=== PATIENT | male | born 1945 | race Caucasian/White ===

== ENCOUNTER 2019-03-17 16:14 | Outpatient (CLI) | payer MEDICARE, SELFPAY ==
[2019-03-17 16:46] LABS: Alanine Aminotransferase 21 U/L (4-50); Albumin Level 4.5 g/dL (3.5-5.1); Alkaline Phosphatase 116 U/L (38-126); Aspartate Amino Transferase 22 U/L (17-59); Bilirubin,Total 0.4 mg/dL (0.2-1.3); Blood Urea Nitrogen 36 mg/dL (9-20); Calcium 9.8 mg/dL (8.4-10.2); Carbon Dioxide 23 mmol/L (22-30); Chloride 98 mmol/L (98-107); Estimated Glomerular Filt Rate 50; Glucose 291 mg/dL (75-110); Potassium 5.3 mmol/L (3.4-5.0); Sodium 135 mmol/L (137-145)
[2019-03-17 16:49] LABS: Hemoglobin A1C 8.8 % (<5.7)
== END 2019-03-17 16:15 | disposition home or self-care (01) ==
PROVIDERS: PCP Internal Medicine
DX: E11.8 Type 2 diabetes mellitus with unspecified complications (principal)
CPT/HCPCS: 36415; 80053; 83036

== ENCOUNTER 2019-07-14 17:39 | Outpatient (CLI) | payer MEDICARE, SELFPAY ==
[2019-07-14 18:14] LABS: Basophils Absolute Auto 0.1 K/mm3 (0.0-0.1); Basophils Percent Auto 0.6 % (0.2-1.2); Eosinophils Absolute Auto 0.2 K/mm3 (0-0.3); Hematocrit 42.3 % (42.0-52.0); Hemoglobin 13.7 g/dL (14.0-18.0); Immature Granulocyte Absolute 0.06 K/mm3 (0.00-0.031); Immature Granulocyte Percent A 0.5 % (0-0.5); Lymphocytes Absolute Auto 1.87 K/mm3 (0.9-3.2); Lymphocytes Percent Auto 16.7 % (18.3-44.2); Mean Corpuscular HGB Conc 32.4 g/dl (32-36); Mean Corpuscular Hemoglobin 31.4 pg (26-34); Mean Corpuscular Volume 96.8 fl (80-100); Mean Platelet Volume 11.2 fl (7.4-10.4); Monocytes Absolute Auto 0.9 K/mm3 (0.1-0.6); Monocytes Percent Auto 8.2 % (2.6-8.5); Neutrophils Absolute Auto 8.1 K/mm3 (1.3-6.7); Platelet Count Result 140 k/mm3 (150-375); Red Blood Count 4.37 M/mm3 (4.6-6.20); Red Cell Distribution Width 13.6 % (11.5-14.5); White Blood Count 11.2 K/mm3 (4.5-10.0)
[2019-07-14 18:27] LABS: Alanine Aminotransferase 24 U/L (4-50); Albumin Level 4.2 g/dL (3.5-5.1); Alkaline Phosphatase 118 U/L (38-126); Aspartate Amino Transferase 28 U/L (17-59); Bilirubin,Total 0.3 mg/dL (0.2-1.3); Blood Urea Nitrogen 31 mg/dL (9-20); Calcium 9.5 mg/dL (8.4-10.2); Carbon Dioxide 25 mmol/L (22-30); Chloride 106 mmol/L (98-107); Cholesterol 110 mg/dL (0-200); Estimated Glomerular Filt Rate 37; Glucose 134 mg/dL (75-110); HDL Direct 28 mg/dL; Sodium 139 mmol/L (137-145); Triglycerides 213 mg/dL (<150)
[2019-07-14 18:32] LABS: Hemoglobin A1C 7.8 % (<5.7)
[2019-07-14 18:39] LABS: LDL Cholesterol Direct 59 mg/dL
[2019-07-14 20:26] LABS: Free T4 Free Thyroxine 0.98 ng/mL (0.78-2.19)
== END 2019-07-14 17:40 | disposition home or self-care (01) ==
DX: E11.8 Type 2 diabetes mellitus with unspecified complications (principal); E78.5 Hyperlipidemia, unspecified; R53.83 Other fatigue; R60.0 Localized edema
CPT/HCPCS: 36415; 80053; 80061; 83036; 84439; 84443; 85025

== ENCOUNTER 2019-07-19 17:33 | Outpatient (CLI) | payer MEDICARE, SELFPAY ==
--- NOTE | ~2019-07-19 | XR_ITS ---
EXAMINATION: XR chest 2V EXAM DATE: 07/19/2019 17:52 INDICATION: Edema of the lower extremities. TECHNIQUE: Frontal and lateral projections of the chest obtained and reviewed. Comparison is made to prior examination from 06/18/2017. FINDINGS: Moderate thoracolumbar scoliosis. The lungs are clear. There are no pleural effusions. T he cardiomediastinal silhouette is within normal limits. There is no pneumothorax suspected. Modera te thoracolumbar disc disease. IMPRESSION: No acute cardiopulmonary findings. Scoliosis. Reviewed, dictated and finalized at location G.
== END 2019-07-19 17:34 | disposition home or self-care (01) ==
DX: R60.0 Localized edema (principal); M41.9 Scoliosis, unspecified
CPT/HCPCS: 71046

== ENCOUNTER 2019-10-14 14:30 | Outpatient (CLI) | payer MEDICARE, SELFPAY ==
--- NOTE | ~2019-10-14 | US_ITS ---
US arterial ankle brachial ind INDICATION: Intermittent claudication TECHNIQUE: Segmental pressures and plethysmographic and Doppler waveforms of the brachial and lower e xtremity arteries were obtained. COMPARISON: None. FINDINGS: Right and left brachial artery pressures of 114 mm Hg and 116 mm Hg, respectively, are concordant (no rmal difference <= 30 mmHg). The right ankle-brachial index (CHARMAINE) is 0.82 (normal >= 0.9-1.0). The right great toe-brachial index (TBI) is 0.59 (normal >= 0.60). The left CHARMAINE is 0.66. The left TBI is 0.37. IMPRESSION: 1. Bilateral peripheral vascular disease, mild on the right and moderate on the left. Reviewed, dictated and finalized at location A.
== END 2019-10-14 14:31 | disposition home or self-care (01) ==
DX: I73.9 Peripheral vascular disease, unspecified (principal)
CPT/HCPCS: 93922